=== PATIENT | female | born 1960 ===

== ENCOUNTER 2018-12-18 13:46 | Outpatient (CLI) | payer OTHER | END 2018-12-18 14:01 | disposition home or self-care (01) | LOC: RAD 501 13:46 | DX: N20.0 Calculus of kidney (principal) ==

== ENCOUNTER 2018-12-21 15:05 | Inpatient (IN) | payer OTHER ==
[~2018-12-21] VITALS: Ht 162.6 cm; Wt 85.3 kg
== END 2018-12-29 10:38 | disposition home or self-care (01) | DRG 661 ==
LOC: SURH 12-27 09:00 → SURG 12-27 12:20 → O/R 12-27 12:20 → SURH 12-27 15:00 → SURG 12-27 16:23
PROVIDERS: ADMIT Urology
PROC: 0T768DZ Dilation of Right Ureter with Intraluminal Device, Via Natural or Artificial Opening Endoscopic (ICD-10-PCS; 2018-12-27)
PROC: 0TC08ZZ Extirpation of Matter from Right Kidney, Via Natural or Artificial Opening Endoscopic (ICD-10-PCS; principal; 2018-12-27 15:00)
DX: N20.0 Calculus of kidney (principal)